=== PATIENT | male | born 1980 | race Caucasian/White ===

== ENCOUNTER 2016-03-17 22:36 | Emergency (ER) | payer BC ==
[~2016-03-17] VITALS: Ht 185.4 cm; Wt 109.0 kg
[2016-03-17 22:45] VITALS: TEMP 36.5; Ht 185.4 cm; Wt 109.0 kg
[2016-03-17] MEDS ORDERED: ONDANSETRON INJ 2 MG/ML 2 ML VIAL IV STA (23:02)
[2016-03-17] MEDS ORDERED: SODIUM CHLORIDE 0.9% 1000ML 1,000 ML IV STA (23:02)
[2016-03-17 23:10] VITALS: O2SAT 99
--- NOTE | 2016-03-17 23:10 | EMERGENCY ROOM VISIT NOTE ---
History Report prepared by Tawana: Brandee Lockhart Under the Supervision of: Dr. Ky Ceron D.O. First contact with patient: 22:55 Chief Complaint: ABDOMINAL PAIN Stated Complaint: ABDOMINAL PAIN, NAUSEA Nursing Triage Summary: Patient reports mid to left sided abdominal pain and n/v since 9 pm. Hx of pancreatitis. History of Present Illness The patient is a 35 year old male who presents to the Emergency Room with complaints of constant left sided abdominal pain starting 2 hours [employer]. The patient rates the current pain as an 8/10 in severity. The patient states that he suffers from chronic pancreatitis and has suffered from it since 2012. He states that he is followed by [facility] in [place]. The patient states that he takes 2400 units of Creon daily. He denies any chest pain or SOB. He states that he is usually treated by fluid and pain management. He states that he also vomited once and is experiencing some nausea. Source of History: patient Onset: 2 hours [employer] Position: abdomen (LUQ) Symptom Intensity: 8/10 Timing: constant Associated Symptoms: + nausea, + vomiting, No SOB, No chest pain Review of Systems See HPI for pertinent positives & negatives. A total of 10 systems reviewed and were otherwise negative. Past Medical & Surgical Medical Problems: (1) Chronic pancreatitis Surgical Problems: (1) History of cholecystectomy Family History Patient reports no known family medical history. Social History Smoking Status: Former Smoker Smokeless Tobacco Use: No Alcohol Use: none Drug Use: none Occupation Status: employed Current/Historical Medications Scheduled Clindamycin Phosphate (Topical (Cleocin-T), 1 APPLN TOP BID Multivitamin (Multivitamin), 1 TAB PO DAILY Ondasetron Odt (Zofran Odt), 4 MG SL Q6H Pancrelipase (Lipase-Protease- (Creon), 24,000 UNITS PO TID Pantoprazole (Protonix), 40 MG PO DAILY Scheduled PRN Ondansetron Hcl (Zofran), 4 MG PO Q6H PRN for Nausea Oxycodone Immediate Rel Tab (Roxicodone Ir), 1-2 TAB PO Q4H PRN for Severe Pain [Proair Hfa], 2 PUFFS INH Q4H PRN for SOB/Wheezing Allergies Coded Allergies: No Known Allergies (Unverified , 03/17/16) Physical Exam Vital Signs Date Time Temp Pulse Resp B/P Pulse Ox O2 Delivery O2 Flow Rate FiO2 03/18/16 00:22 72 18 149/96 97 Room Air 03/17/16 23:10 99 Room Air 03/17/16 22:45 36.5 72 18 145/97 99 Room Air Physical Exam GENERAL: Patient is awake, alert, somewhat anxious appearing and appears to be in pain. EYES: The conjunctivae are clear. The pupils are round and reactive. EARS, NOSE, MOUTH AND THROAT: The nose is without any evidence of any deformity. Mucous membranes are moist tongue is midline NECK: The neck is nontender and supple. RESPIRATORY: Normal respiratory effort is noted there is no evidence of wheezing rhonchi or rales CARDIOVASCULAR: Regular rate and rhythm noted there no murmurs rubs or gallops normal S1 normal S2 GASTROINTESTINAL: The abdomen is mildy distended but soft. Epigastric tenderness to palpation, no guarding or rigidity. MUSCULOSKELETAL/EXTREMITIES: There is no evidence of gross deformity full range of motion is noted in the hips and shoulders SKIN: There is no obvious evidence of any rash. There are no petechiae, pallor or cyanosis noted. NEUROLOGIC: Patient is awake alert and oriented x3. Medical Decision & Procedures ER Provider Diagnostic Interpretation: X-ray results as stated below per interpretation by me: Chest X-ray: No free air, Lindsey heart size, no definite infiltrate, no acute disease. Laboratory Results 03/17/16 23:00 Red Blood Count 5.54, Mean Corpuscular Volume 87.7, Mean Corpuscular Hemoglobin 30.7, Mean Corpuscular Hemoglobin Concent 35.0, Mean Platelet Volume 10.5, Neutrophils (%) (Auto) 72.4, Lymphocytes (%) (Auto) 16.5, Monocytes (%) (Auto) 5.8, Eosinophils (%) (Auto) 4.9, Basophils (%) (Auto) 0.2, Neutrophils # (Auto) 6.75, Lymphocytes # (Auto) 1.54, Monocytes # (Auto) 0.54, Eosinophils # (Auto) 0.46, Basophils # (Auto) 0.02 03/17/16 23:00 Test 03/17/16 23:00 White Blood Count 9.33 K/uL (4.8-10.8) Red Blood Count 5.54 M/uL (4.7-6.1) Hemoglobin 17.0 g/dL (14.0-18.0) Hematocrit 48.6 % (42-52) Mean Corpuscular Volume 87.7 fL (80-100) Mean Corpuscular Hemoglobin 30.7 pg (25-34) Mean Corpuscular Hemoglobin Concent 35.0 g/dl (32-36) Platelet Count 141 K/uL (130-400) Mean Platelet Volume 10.5 fL (7.4-10.4) Neutrophils (%) (Auto) 72.4 % Lymphocytes (%) (Auto) 16.5 % Monocytes (%) (Auto) 5.8 % Eosinophils (%) (Auto) 4.9 % Basophils (%) (Auto) 0.2 % Neutrophils # (Auto) 6.75 K/uL (1.4-6.5) Lymphocytes # (Auto) 1.54 K/uL (1.2-3.4) Monocytes # (Auto) 0.54 K/uL (0.11-0.59) Eosinophils # (Auto) 0.46 K/uL (0-0.5) Basophils # (Auto) 0.02 K/uL (0-0.2) RDW Standard Deviation 40.4 fL (36.4-46.3) RDW Coefficient of Variation 12.6 % (11.5-14.5) Immature Granulocyte % (Auto) 0.2 % Immature Granulocyte # (Auto) 0.02 K/uL (0.00-0.02) Anion Gap 11.0 mmol/L (3-11) Est Creatinine Clear Calc Drug Dose 121.3 ml/min Estimated GFR () 100.3 Estimated GFR (Non- 86.5 BUN/Creatinine Ratio 7.9 (10-20) Calcium Level 9.7 mg/dl (8.5-10.1) Total Bilirubin 0.4 mg/dl (0.2-1) Direct Bilirubin < 0.1 mg/dl (0-0.2) Aspartate Amino Transf (AST/SGOT) 20 U/L (15-37) Alanine Aminotransferase (ALT/SGPT) 32 U/L (12-78) Alkaline Phosphatase 84 U/L (45-117) Total Protein 8.5 gm/dl (6.4-8.2) Albumin 4.2 gm/dl (3.4-5.0) Lipase 843 U/L (73-393) Laboratory results per my review. Medications Administered Medications (Trade) Dose Ordered Sig/Frederic Route Start Time Stop Time Status Last Admin Dose Admin Sodium Chloride (Nss 1000ml) 1,000 ml @ 999 mls/hr Q1H1M STAT IV 03/17/16 23:02 03/18/16 00:02 DC 03/17/16 23:11 999 MLS/HR Ondansetron HCl 4 mg 4 mg NOW STAT IV 03/17/16 23:02 03/17/16 23:03 DC 03/17/16 23:11 4 MG Pantoprazole Sodium/Syringe (Protonix Inj/ Syringe) 10 ml @ 5 mls/min NOW ONCE IV 03/17/16 23:15 03/17/16 23:16 DC 03/17/16 23:30 5 MLS/MIN Hydromorphone HCl (Dilaudid Inj) 1 mg Q30M PRN IV 03/17/16 23:15 03/18/16 00:54 DC 03/17/16 23:12 1 MG Oxycodone HCl (Roxicodone Immediate Rel 5MG Home Pack) 1 homepack UD ONCE PO 03/18/16 00:15 03/18/16 00:16 DC 03/18/16 00:21 1 HOMEPACK Ondansetron HCl (ZOFRAN ODT 4MG Home Pack) 1 homepack UD ONCE PO 03/18/16 00:15 03/18/16 00:16 DC 03/18/16 00:21 1 HOMEPACK ED Course 2300: The patient was evaluated in room B2. A complete history and physical examination were performed. 2302: Ordered Zofran Inj 4 mg IV, NSS 1,000 ml @ 999 mls/hr IV. 2315: Ordered Dilaudid Inj 1 mg IV, Pantoprazole Sodium 40 mg/ Syringe 10 ml @ 5 ml/min IV. 0015: Ordered Ondansetron HCl 1 homepack PO, Oxycodone HCl 1 homepack PO. 0030: Upon reevaluation, the patient is hemodynamically stable. I discussed the results and treatment plan with him. He verbalized agreement of the treatment plan. The patient was discharged home. Medical Decision Differential diagnosis: Etiologies such as appendicitis, diverticulitis, PUD, biliary pathology, UTI, pancreatitis, obstruction, mesenteric ischemia, aortic pathology, infections, inflammatory bowel disease, renal colic, as well as others were entertained. Nursing notes reviewed. The patient is a 35-year-old male who presented to the emergency department for an evaluation of upper abdominal pain. The patient has a history of chronic pancreatitis. He feels that this is similar to his previous episodes of pancreatitis. His physical exam was not consistent with an acute surgical abdomen however he did have tenderness the epigastric region as well as an elevation in his lipase. The patient was treated in the emergency department with IV fluids IV pain medicine IV antiemetics. He was also given Protonix. On subsequent reevaluation he is feeling much better. He was encouraged to continue with a clear liquid diet and continue all medications as prescribed. He was encouraged to follow-up with his primary care physician for reevaluation but return to the emergency department immediately if symptoms change worsen or the need arises. Impression Primary Impression: Pancreatitis Scribe Attestation The scribe's documentation has been prepared under my direction and personally reviewed by me in its entirety. I confirm that the note above accurately reflects all work, treatment, procedures, and medical decision making performed by me. Departure Information Dispostion Home / Self-Care Prescriptions Ondasetron Odt (ZOFRAN ODT) 4 Mg Tab 4 MG SL Q6H for Nausea, #20 TAB Prov: Nacho Mix, DO 03/18/16 Oxycodone Immediate Rel Tab (ROXICODONE IR) 5 Mg Tab 1-2 TAB PO Q4H Y for Severe Pain, #24 TAB Prov: Nacho Mix, DO 03/18/16 Pantoprazole (Protonix) 40 Mg Tab 40 MG PO DAILY, #30 TAB Prov: Nacho Mix, DO 03/18/16 Referrals No Doctor, Assigned (PCP) Forms Call Back Authorization, HOME CARE DOCUMENTATION FORM, IMPORTANT VISIT INFORMATION Patient Instructions My [facility] Additional Instructions Call your primary care physician to schedule a follow-up appointment. Try to only have a clear liquid diet until your symptoms are improving. Continue all medications as prescribed. Return to the emergency department if symptoms change worsen or if the need arises.
[2016-03-17] MEDS ORDERED: HYDROmorphone INJ 1 MG/ML SYR IV PRN (23:15)
[2016-03-17] MEDS ORDERED: PANTOprazole INJ 40 MG in SYRINGE 0 ML IV ONE (23:15)
[2016-03-17 23:16] LABS: BASO % 0.2 %; BASO ABS # 0.02 K/uL (0-0.2); COMPLETE YES; EOS % 4.9 %; HEMATOCRIT 48.6 % (42-52); IG% 0.2 %; LYMPH % 16.5 %; LYMPH ABS # 1.54 K/uL (1.2-3.4); MEAN CELL VOLUME 87.7 fL (80-100); MEAN CORPUSCULAR HEMOGLOBIN 30.7 pg (25-34); MEAN PLATELET VOLUME 10.5 fL (7.4-10.4); MONO % 5.8 %; NEUT % 72.4 %; PLATELET COUNT 141 K/uL (130-400); RED BLOOD COUNT 5.54 M/uL (4.7-6.1); WHITE BLOOD COUNT 9.33 K/uL (4.8-10.8)
[2016-03-17 23:33] LABS: ALT/SGPT 32 U/L (12-78); BLOOD UREA NITROGEN 9 mg/dl (7-18); BUN/CREATININE RATIO 7.9 (10-20); CALCIUM 9.7 mg/dl (8.5-10.1); CARBON DIOXIDE 30 mmol/L (21-32); CHLORIDE 100 mmol/L (98-107); GLUCOSE 141 mg/dl (70-99); POTASSIUM 3.9 mmol/L (3.5-5.1); SODIUM 141 mmol/L (136-145)
[2016-03-17] MEDS ORDERED: PANC6000 PO (23:35)
[2016-03-17 23:36] LABS: ALKALINE PHOSPHATASE 84 U/L (45-117); AST/SGOT 20 U/L (15-37)
[2016-03-17] MEDS ORDERED: PROAIR HFA INH (23:37)
[2016-03-17] MEDS ORDERED: CLIN1LOT TOP (23:38)
[2016-03-17] MEDS ORDERED: ONDA4TAB46 PO (23:39)
[2016-03-17] MEDS ORDERED: MULT-506 PO (23:40)
[2016-03-18] MEDS ORDERED: OXYC1TAB3 PO (00:10)
[2016-03-18] MEDS ORDERED: PANT40TA PO (00:10)
[2016-03-18] MEDS ORDERED: ONDA4TAB10 SL (00:10)
[2016-03-18] MEDS ORDERED: ONDANSETRON HOME PACK 4MG OD TAB PO ONE (00:15)
[2016-03-18] MEDS ORDERED: OXYCODONE IR HOME PACK PO ONE (00:15)
[2016-03-18 00:22] VITALS: BP 149/96; PULSE 72; O2SAT 97
--- NOTE | 2016-03-18 06:53 | DIAGNOSTIC IMAGING REPORT ---
CHEST ONE VIEW PORTABLE CLINICAL HISTORY: Abdominal pain. COMPARISON STUDY: No previous studies for comparison. FINDINGS: No lucency is identified under the hemidiaphragms on this exam to suggest pneumoperitoneum on this exam. Lung volumes are normal. Lungs are clear. There is no pneumothorax or pleural effusion. Cardiac size is normal. Mediastinal contours are normal. IMPRESSION: No acute cardiopulmonary findings. Electronically signed by: Moe Buckner M.D. 03/18/2016 6:51 AM Dictated Date/Time: 03/18/2016 6:51 AM
== END 2016-03-18 00:37 | disposition home or self-care (01) ==
LOC: C.EDB 22:37
DX: K85.90 Acute pancreatitis without necrosis or infection, unspecified (principal); Z87.891 Personal history of nicotine dependence